=== PATIENT | male | born 1980 | race Two or more races ===

== ENCOUNTER 2025-07-18 09:00 | Day surgery (SDC) | payer OTHER ==
[2025-07-10 09:50] VITALS: BP 122/75
[2025-07-10 10:17] LABS: URINE APPEARANCE Clear; URINE BILIRRUBIN Negative (NEGATIVE); URINE BLOOD Negative; URINE COLOR Yellow; URINE GLUCOSE Negative (NEGATIVE); URINE KETONE 15 (NEGATIVE); URINE LEUKOCYTE Trace; URINE NITRATE Negative; URINE PROTEIN Negative (NEGATIVE); URINE UROBILINOGEN 0.2 E.U./dl
[2025-07-10 10:20] LABS: BASO % 0.2 % (0.1-1.2); EOS # 0.01 (0.04-0.54); EOS % 0.2 % (0.7-7.0); LYMPH # 0.66 (1.18-3.74); LYMPH % 13.1 % (19.3-53.1); MEAN PLATELET VOLUME 10.10 fl (9.4-12.4); MONO # 0.41 (0.24-0.82); MONO % 8.2 % (4.7-12.5); NEUT # 3.93 (1.56-6.13); NEUT % 78.1 % (34.0-71.1); RED CELL DISTRIBUTION WIDTH 15.0 % (11.6-14.4)
[2025-07-10 10:22] LABS: URINE RBC 4.3 uL (0.0-20.8)
[2025-07-10 10:27] LABS: URINE BACTERIA 2.3 uL (0.0-1933); URINE CAST 0.00 uL (0.0-1.40); URINE EPITHELIAL CELLS 0.3 uL (0.0-38.8); URINE WBC 0.4 uL (0.0-23.2)
[2025-07-10 10:41] LABS: INR 1.04
[2025-07-10 10:57] LABS: BUN CREA RATIO 14.0 (7.0-25.0); CREATININE SERUM 0.83 mg/dL (0.70-1.30); GFR 99.74; GLUCOSE FASTING 134.0 mg/dL (65-100); OSMOLALITY SERUM 283.0 MOSM/KG (275-295)
[~2025-07-18] VITALS: Ht 175.3 cm; Wt 84.4 kg
[~2025-07-18 09:00] MED LIST: ATACAND32 MG PO; FOLIC ACID0.8 M1 PO; HUMALOG100 UNIT/2; MULTIPLE VITAM1 EAC2 PO; NORVASC10 MG PO; XARELTO2.5 MG PO
[2025-07-18] MEDS ORDERED: EPINEPHRINE HCL/PF 1 MG/ML AMPUL ONE (09:18)
[2025-07-18] MEDS ORDERED: POVIDONE-IODINE 118 ML BOTT TOP ONE (09:18)
[2025-07-18] MEDS ORDERED: CEFAZOLIN SODIUM 1,000 MG VIAL ONE (09:19)
[2025-07-18] MEDS ORDERED: SUGAMMADEX SODIUM 200 MG/2 ML VIAL IV ONE (11:11)
[2025-07-18] MEDS ORDERED: CEPHALEXIN500 MG PO (11:23)
[2025-07-18] MEDS ORDERED: CIPROFLOXACIN2.5 ML OTIC (11:23)
== END 2025-07-18 14:20 | disposition home or self-care (01) ==
LOC: CIR.AMB 09:00
PROVIDERS: ATTEND Otolaryngology Otology & Neurotology
DX: H90.A12 Conductive hearing loss, unilateral, left ear with restricted hearing on the contralateral side (principal); S01.302A Unspecified open wound of left ear, initial encounter; H61.302 Acquired stenosis of left external ear canal, unspecified